=== PATIENT | female | born 1995 | race American Indian/Alaskan Native ===

== ENCOUNTER 2022-08-18 16:53 | Emergency (ER) | payer OTHER ==
[~2022-08-18] VITALS: Ht 172.7 cm; Wt 120.2 kg
[~2022-08-18 16:53] MED LIST: CALCIUM 500 MG1 EAC1 PO; CALCIUM500 M1 PO; VITAMIN D5000 UNI1 PO; VITAMIN D5000 UNIT PO; ZOFRAN ODT4 MG PO; ZOFRAN4 MG PO
== END 2022-08-18 20:25 | disposition home or self-care (01) ==
LOC: ED 16:53
DX: Z79.899 Other long term (current) drug therapy (principal); Z88.0 Allergy status to penicillin; F19.129 Other psychoactive substance abuse with intoxication, unspecified; F10.90 Alcohol use, unspecified, uncomplicated
CPT/HCPCS: 99284

== ENCOUNTER 2024-02-17 14:58 | Inpatient (IN) | payer OTHER ==
[~2024-02-17] VITALS: Ht 172.7 cm; Wt 136.1 kg
--- NOTE | ~2024-02-17 | OR ---
[facility] [address], [place] [address] Draft DATE OF OPERATION: 02/17/2024 SURGEON: Shanta Mayfield MD HEALTH PROMOTION COORDINATOR: Castro. PREOPERATIVE DIAGNOSES: Term , preeclampsia, prior section. POSTOPERATIVE DIAGNOSES: Term , preeclampsia, prior section, delivered. PROCEDURE: Repeat section with low segment transverse uterine incision. ANESTHESIA: Spinal. ESTIMATED BLOOD LOSS: 700 mL. DRAINS: Calvert catheter. INDICATIONS AND FINDINGS: The patient is a 29-year-old female, 3, para 2, who was seen in the office today with a significant weight gain of 20 pounds over the last week as well as elevated blood pressures. Lab evaluation was fairly normal other than her protein creatinine ratio was elevated at 0.42. Her dating is suspect as her days are based on a 34 week ultrasound. She has had limited care. The patient has also been using meths intermittently. status appeared very reassuring prior to . She was taken to the operating room where she was delivered of a little girl via lower segment transverse uterine incision with Apgars of 8 and 9 and weight was 7 pounds 3 ounces. The uterus was levorotated significantly. The bladder was advanced on the anterior uterine wall. The tubes and ovaries, placenta appeared normal. PROCEDURE IN DETAIL: The patient was prepped and draped in the supine position. A Pfannenstiel skin incision was made through her prior scar and carried down to the fascia. The incision was PATIENT NAME: ZACH WEBB OPERATIVE REPORT DATE OF : [birth year] REPORT #: [id number] PHYSICIAN: SHANTA MAYFIELD MD PCP: SHANTA MAYFIELD MD REPORT IS CONFIDENTIAL AND NOT TO BE RELEASED WITHOUT AUTHORIZATION [facility] [address] [place] [id number] Draft extended laterally. Inferior and superior fascial flaps were then created. The muscles were bluntly divided and the peritoneum opened bluntly and the incision extended bluntly. The Julio retractor was then placed. The adhesions over the anterior uterine wall were then incised with the Metzenbaum scissors, bringing down the bladder. The uterine wall was then scored and entered with a knife at just above the peritoneal reflection. The baby was delivered with the above findings and handed off to the pediatric staff in attendance. Cord blood was obtained as well as the length of cord for testing. The placenta was expressed and the uterus explored with a lap tape assuring no remaining fragments. The uterus was closed in 2 layers using 0 Monocryl. The first layer was a running locking stitch and second was a vertical imbricating stitch. The incision appeared to be hemostatic. The retractor was removed. The peritoneum identified. The peritoneum was closed with a running suture of 3-0 Vicryl. There was a bundle of vessels on the left superior muscle which required several [id number] sutures of 0 Vicryl to control the bleeding. Other bleeding points were controlled with cautery. The muscles were reapproximated with interrupted sutures of 0 Vicryl. This layer was irrigated, inspected and good hemostasis was noted. Scott was then sprinkled over the muscles to further aid in hemostasis. Fascia was closed from each angle to the midline with a running suture of 0 Vicryl. The subcu space was irrigated, inspected and bleeding points controlled with cautery. The deep space was closed with a running suture of 3-0 Vicryl. The skin was closed with allison. All sponge and needle counts were correct. She tolerated the procedure well and was taken to the recovery room in good condition. MD [place] Nix/GEOFF /[id number] Copies: ~ PATIENT NAME: ZACH WEBB OPERATIVE REPORT DATE OF : [birth year] REPORT #: [id number] PHYSICIAN: SHANTA MAYFIELD MD PCP: SHANTA MAYFIELD MD REPORT IS CONFIDENTIAL AND NOT TO BE RELEASED WITHOUT AUTHORIZATION
[2024-02-17 15:28] LABS: HEMATOCRIT 32.2 % (35.0-50.0); HEMOGLOBIN 10.4 g/dL (12.0-18.0); MCH 23.9 (27-36); MCHC 32.4 g/dl (30-36); MCV 73.9 fl (81-99); RBC 4.36 M/ul (4.3-5.7); RDW 18.7 (10.5-15.0)
[2024-02-17 15:31] LABS: CREATININE, RANDOM URINE 106.56 mg/dL (NOT ESTABLISHED); PROTEIN/CREATININE RATIO 0.41 mg/mg (0.010-0.107)
[2024-02-17 15:39] LABS: ALBUMIN/GLOBULIN RATIO 0.54 (1.1-2.4); ANION GAP 13.8 (7-21); BILIRUBIN, TOTAL 0.8 ng/dL (0.2-1.0); BUN/CREATININE RATIO 10.44 (6.0-28.6); CALCIUM 8.4 mg/dL (8.5-10.1); CREATININE, SERUM 0.67 mg/dL (0.55-1.02); POTASSIUM 3.8 mmol/L (3.5-5.1); PROTEIN, TOTAL 5.7 g/dL (6.4-8.2)
[2024-02-17] MEDS ORDERED: CEFAZOLIN SODIUM 3 GM/30 ML SYR IV SCH (16:00)
[2024-02-17] MEDS ORDERED: LACTATED RINGER'S 1,000 ML IV PRN (16:00)
[2024-02-17] MEDS ORDERED: SOD+POT BICARB/CITRIC ACID 2 EA TABLET.EFF PO ONE (16:00)
[2024-02-17 16:03] LABS: ABO O; RH POSITIVE
[2024-02-17 16:04] LABS: ANTIBODY SCREEN NEGATIVE
[2024-02-17] MEDS ORDERED: fentaNYL citrate 100 MCG/2 ML VIAL ONE (16:36)
[2024-02-17] MEDS ORDERED: LIDOCAINE HCL 2% 5 ML SDV ONE (16:36)
[2024-02-17] MEDS ORDERED: MORPHINE SULFATE 1 MG/ML VIAL ONE (16:36)
[2024-02-17] MEDS ORDERED: BUPIVACAINE 0.75% IN DEXTROSE 2 ML AMP ONE (16:36)
[2024-02-17] MEDS ORDERED: ondansetron HCL 4 MG/2 ML VIAL ONE (16:36)
[2024-02-17] MEDS ORDERED: dexmedeTOMIDine HCl 200 MCG/2 ML VIAL ONE (17:16)
[2024-02-17] MEDS ORDERED: DEXAMETHASONE SOD PHOS 4 MG/ML VIAL ONE (17:16)
[2024-02-17] MEDS ORDERED: diphenhydrAMINE HCL 25 MG CAP PO PRN (17:45)
[2024-02-17] MEDS ORDERED: HYDROmorphone HCL 1 MG/ML SYR IV PRN ×2 (17:45)
[2024-02-17] MEDS ORDERED: diphenhydrAMINE HCL 50 MG/ML VIAL IV PRN (17:45)
[2024-02-17] MEDS ORDERED: IBLOOD GLUCOSE TEST STRIP 1 EA TEST VI PRN (17:45)
[2024-02-17] MEDS ORDERED: NALOXONE HCL 0.4 MG SYR IV PRN ×2 (17:45)
[2024-02-17] MEDS ORDERED: ondansetron HCL 4 MG/2 ML VIAL IV PRN ×2 (17:45)
[2024-02-17] MEDS ORDERED: KETOROLAC TROMETHAMINE 30 MG/ML VIAL IV PRN ×2 (17:45)
[2024-02-17 17:47] LABS: AMPHETAMINES, URINE POSITIVE (NEGATIVE); BARBITURATES, URINE NEGATIVE (NEGATIVE); BENZODIAZEPINE, URINE NEGATIVE (NEGATIVE); BUPRENORPHINE, URINE NEGATIVE (NEGATIVE); CANNABINOID, URINE NEGATIVE (NEGATIVE); COCAINE, URINE NEGATIVE (NEGATIVE); ECSTASY, URINE POSITIVE (NEGATIVE); FENTANYL, URINE NEGATIVE (NEGATIVE); METHADONE, URINE NEGATIVE (NEGATIVE); OPIATES, URINE NEGATIVE (NEGATIVE); OXYCODONE, URINE NEGATIVE (NEGATIVE); PHENCYCLIDINE, URINE NEGATIVE (NEGATIVE)
[2024-02-17] MEDS ORDERED: TRANEXAMIC ACID 1,000 MG/10 ML AMP ONE (17:58)
[2024-02-17] MEDS ORDERED: LIDOCAINE 2% VISCOUS 6 ML SYR TOP ONE ×2 (18:15)
[2024-02-17] MEDS ORDERED: MAGNESIUM HYDROXIDE 30 ML UDC PO PRN (18:15)
[2024-02-17] MEDS ORDERED: CALCIUM CARBONATE 500 MG CHEW PO PRN (18:15)
[2024-02-17] MEDS ORDERED: OXYCODONE HCL 5 MG TAB PO PRN (18:15)
[2024-02-17] MEDS ORDERED: OXYTOCIN/0.9 % SODIUM CHLORIDE 500 ML IV SCH (18:15)
[2024-02-17] MEDS ORDERED: MAGNESIUM HYDROXIDE/AL HYDROX 30 ML CUP PO PRN (18:15)
[2024-02-17] MEDS ORDERED: WITCH HAZEL/GLYCERIN 1 EA PAD TOP PRN (18:15)
[2024-02-17] MEDS ORDERED: HYDROCORTISONE ACETATE 25 MG SUPP PR PRN (18:15)
[2024-02-17] MEDS ORDERED: BENZOCAINE 60 ML AEROSOL TOP PRN (18:15)
--- NOTE | 2024-02-17 19:07 | NUR ---
02/17/241906 Kimmie Landrum 1828- PT ARRIVES IN PACU IN ROOM 104 [facility]BC AFTER . PT ALERT BUT DROWSY. DENIES PAIN OR NAUSEA. ALL MONITORS IN PLACE. DRESSING TO ABD, CDI. ABD SOFT, NON DISTENDED. HENRY CATHETER IN PLACE, DRAINING CLEAR YELLOW URINE. LR WITH 20 UNITS OF PITOCIN TO 18 G LW, DRESSING CDI. RED PADS IN PLACE WITH SMALL AMOUNT OF DRAINAGE FROM BALANCE WHEEL ARM BURNISHER. GRANDMA IN ROOM WITH BABY. 1839- PT CONTINUES TO HAVE NO COMPLAINTS. HEAD OF BED ELEVATED MORE. PT HOLDING BABY AT THIS TIME. 1844- [facility]BC NURSE AT BEDSIDE TO ASSIST WITH BREAST FEEDING. PT CONTINUES TO HAVE NO COMPLAINTS. 1847- BED PLUGGED IN, [facility]BC NURSE AT BEDSIDE. REPORT TO PATRICK STARKS, HENRY CATHETER REMAINS IN PLACE. LR WITH 20 UNITS PITOCIN CONTINUES TO INFUSE. NO SIGNS OF DISTRESS, CARE OF PT TURNED OVER AT THIS TIME.
[2024-02-17] MEDS ORDERED: ACETAMINOPHEN 500 MG TAB PO SCH (20:00)
[2024-02-17] MEDS ORDERED: SENNOSIDES/DOCUSATE 1 EA TAB PO SCH (21:00)
[2024-02-18] MEDS ORDERED: LACTATED RINGER'S 1,000 ML IV SCH (05:00)
[2024-02-18 05:38] LABS: HEMATOCRIT 29.8 % (35.0-50.0); HEMOGLOBIN 9.6 g/dL (12.0-18.0); MCH 23.7 (27-36); MCHC 32.2 g/dl (30-36); MCV 73.6 fl (81-99); RBC 4.04 M/ul (4.3-5.7); RDW 18.8 (10.5-15.0)
[2024-02-18 07:22] VITALS: BP 125/68
--- NOTE | 2024-02-18 07:52 | PR ---
[facility] [address], [place] [address] Signed PP Progress Notes Datetime Report Generated by GRACE: 02/18/2024 07:51 SUBJECTIVE: [id number] Pain: Within Normal Limits Nausea/Vomiting: Denies Flatus: No Vital Signs: [id number] Vital Signs: Reviewed Cardiovascular: Normal Respiratory: Normal Abdomen/Uterus: Abnormal Lochia: Normal Vulva/Perineum: Not Done Breasts: Not Done CVA Tenderness: Not Done Extremities: Abnormal Incision: Normal Progress: Abnormal Exam Comments: Abdomen w/ active BS. Fundus firm, NT @ U-1. H/H 9.6/29..8, WBC 14.2, plat 227k IMPRESSION/PLAN/PROCEDURES: [id number] Impression: Induced Hypertension Other Impression: UDS pos meth for mother and child Other Plans: ambulate, shower, discouraged breast feeding Progress Notes: Pain management is adequate. Discussed pos UDS in both her and the baby for meth and I do not feel is an ideal option. UO adequate but IV fluids stopped at 7 pm for unknown reason. She is third spacing w/ her edema but this does not mean she is intravascularly long. Will continue close observation of UO. Signing Physician: Shanta Mayfield MD Copies: ~ *Electronically Signed* 02/18/24 0751 SHANTA MAYFIELD MD PATIENT NAME: ZACH WEBB PROGRESS NOTE DATE OF : [birth year] PHYSICIAN: SHANTA MAYFIELD MD RPT #: [id number] REPORT IS CONFIDENTIAL AND NOT TO BE RELEASED WITHOUT AUTHORIZATION
[2024-02-18] MEDS ORDERED: ENOXAPARIN SODIUM 40 MG/0.4 ML SYR SUB-Q SCH (09:00)
[2024-02-18] MEDS ORDERED: IBUPROFEN 800 MG TAB PO SCH (16:00)
== END 2024-02-19 16:00 | disposition home or self-care (01) | DRG 787 ==
LOC: FBCO 14:58 → FBC 15:55
PROVIDERS: ADMIT Obstetrics & Gynecology; ATTEND Obstetrics & Gynecology
PROC: 10D00Z1 Extraction of Products of Conception, Low, Open Approach (ICD-10-PCS; principal; 2024-02-17 16:30)
DX: O14.94 Unspecified pre-eclampsia, complicating childbirth (principal); O98.82 Other maternal infectious and parasitic diseases complicating childbirth; Z37.0 Single live birth; O34.211 Maternal care for low transverse scar from previous cesarean delivery; O13.4 Gestational [pregnancy-induced] hypertension without significant proteinuria, complicating childbirth; O99.824 Streptococcus B carrier state complicating childbirth; Z3A.39 39 weeks gestation of pregnancy; O99.324 Drug use complicating childbirth; F15.90 Other stimulant use, unspecified, uncomplicated
CPT/HCPCS: 01961; 36415; 76942; 80053; 80307; 82565; 82570; 83615; 84156; 84550; 85027; 86850; 86900; 86901; A9270; J0690; J1100; J1650; J1885; J2001; J2274; J2405; J3010